=== PATIENT | female | born 1980 | race Caucasian/White ===

== ENCOUNTER 2017-03-28 19:37 | Emergency (ER) | payer OTHER ==
[~2017-03-28] VITALS: Ht 165.1 cm; Wt 74.2 kg
[~2017-03-28 19:37] MED LIST: ATHENOL325 MG PO; NOHOMEMEDS; [UNRECOGNIZED DRUG - OTHER]
[2017-03-28 20:18] LABS: HEMATOCRIT 41.1 % (36.0-46.0); MCH 28.4 PG (29.0-34.0); MCHC 34.3 G/DL (30.0-36.0); MCV 82.7 FL (83-99); MEAN PLAT.VOLUME 10.2 uM^3 (9.5-12.4); PLATELET COUNT 305 K/uL (156-360); RBC DIS.WIDTH-CV 12.4 % (11.8-14.6); RBC DIS.WIDTH-SD 37.2 % (39-53); RED BLOOD COUNT 4.97 M/uL (3.80-5.20); WHITE BLOOD COUNT 5.6 K/uL (4.1-10.2)
[2017-03-28 20:24] LABS: ADD MIUA? YES; BILIRUBIN NEGATIVE; BLOOD NEGATIVE; COLOR AMBER ((YELLOW)); GLUCOSE (STRIP) NEGATIVE; KETONES NEGATIVE; LEUKOCYTES NEGATIVE; NITRITE NEGATIVE; PROTEIN (STRIP) 30; SPECIFIC GRAVITY 1.029 (1.000-1.030)
[2017-03-28 20:30] LABS: BACTERIA RARE /HPF; EPITHELIAL CELLS 1+ /HPF; MUCUS 4+ /LPF; RED BLOOD CELLS 0-5 /HPF (0-5); WHITE BLOOD CELLS 0-5 /HPF (0-5)
[2017-03-28 20:32] LABS: CHLORIDE 106 mEq/L (99-109); POTASSIUM 3.7 mEq/L (3.7-5.4); SODIUM 141 mEq/L (136-147)
[2017-03-28 20:33] LABS: GLUCOSE 112 mg/dL (70-99)
[2017-03-28 20:35] LABS: ANION GAP 10 MEQ/L (2-14)
[2017-03-28 20:37] LABS: GFR ESTIMATE (CALCULATED) > 59 mL/min/
[2017-03-28 20:38] LABS: UREA NITROGEN (BUN) 13 mg/dL (9-23)
[2017-03-28 20:46] LABS: QUANTITATIVE HCG < 4.0 MIU/ML
[2017-03-28 22:26] VITALS: BP 131/74
== END 2017-03-28 22:27 | disposition home or self-care (01) ==
LOC: EME 19:37
PROVIDERS: Physician Assistant
DX: G43.909 Migraine, unspecified, not intractable, without status migrainosus (principal); Z87.891 Personal history of nicotine dependence
CPT/HCPCS: 80048; 81003; 84702; 85027; 99281; 99284; J1885

== ENCOUNTER 2017-06-27 12:48 | Emergency (ER) | payer OTHER ==
[~2017-06-27] VITALS: Ht 165.1 cm; Wt 75.0 kg
[2017-06-27] MEDS ORDERED: GABAPENTIN300 MG PO (15:07)
[2017-06-27] MEDS ORDERED: HYDROCODON-ACE1 EAC8 PO (15:07)
[2017-06-27] MEDS ORDERED: KEFLEX500 MG PO (15:18)
[2017-06-27 15:31] VITALS: BP 111/70
== END 2017-06-27 15:25 | disposition home or self-care (01) ==
LOC: EME 12:48
DX: S91.331A Puncture wound without foreign body, right foot, initial encounter (principal); W45.8XXA Other foreign body or object entering through skin, initial encounter; Y93.02 Activity, running; Y92.410 Unspecified street and highway as the place of occurrence of the external cause
CPT/HCPCS: 73630; 87070; 87075; 87205; 99281; 99284

== ENCOUNTER 2017-08-14 20:26 | Emergency (ER) | payer OTHER ==
[~2017-08-14] VITALS: Ht 165.1 cm; Wt 71.9 kg
[~2017-08-14 20:26] MED LIST changes: +GABAPENTIN300 MG PO; +HYDROCODON-ACE1 EAC8 PO; +KEFLEX500 MG PO
[2017-08-14 21:20] LABS: HEMATOCRIT 41.1 % (36.0-46.0); MCH 29.2 PG (29.0-34.0); MCHC 33.6 G/DL (30.0-36.0); MCV 86.9 FL (83-99); MEAN PLAT.VOLUME 10.2 uM^3 (9.5-12.4); PLATELET COUNT 295 K/uL (156-360); RBC DIS.WIDTH-CV 12.2 % (11.8-14.6); RED BLOOD COUNT 4.73 M/uL (3.80-5.20); WHITE BLOOD COUNT 4.7 K/uL (4.1-10.2)
[2017-08-14 21:35] LABS: CHLORIDE 106 mEq/L (99-109); POTASSIUM 3.8 mEq/L (3.7-5.4); SODIUM 139 mEq/L (136-147)
[2017-08-14 21:37] LABS: GLUCOSE 89 mg/dL (70-99)
[2017-08-14 21:38] LABS: ANION GAP 6 MEQ/L (2-14)
[2017-08-14 21:40] LABS: GFR ESTIMATE (CALCULATED) > 59 mL/min/
[2017-08-14 21:41] LABS: UREA NITROGEN (BUN) 7 mg/dL (9-23)
[2017-08-15] MEDS ORDERED: VENTOLIN HFA18 GM IH (02:15)
[2017-08-15] MEDS ORDERED: MOTRIN600 MG PO (02:16)
[2017-08-15 02:40] VITALS: BP 104/67
== END 2017-08-15 02:45 | disposition home or self-care (01) ==
LOC: EME 20:26
DX: J45.901 Unspecified asthma with (acute) exacerbation (principal); J02.9 Acute pharyngitis, unspecified; R09.81 Nasal congestion; Z87.891 Personal history of nicotine dependence
CPT/HCPCS: 71020; 80048; 85027; 94640; 94640 76; 99281; 99284

== ENCOUNTER 2018-02-06 17:52 | Emergency (ER) | payer OTHER ==
[~2018-02-06] VITALS: Ht 165.1 cm; Wt 76.6 kg
[~2018-02-06 17:52] MED LIST changes: +MOTRIN600 MG PO; +VENTOLIN HFA18 GM IH
[2018-02-06 21:10] LABS: HEMATOCRIT 41.4 % (36.0-46.0); HEMOGLOBIN 14.2 G/DL (11.9-15.5); MCH 31.3 PG (29.0-34.0); MCHC 34.3 G/DL (30.0-36.0); MCV 91.4 FL (83-99); PLATELET COUNT 289 K/uL (156-360); RBC DIS.WIDTH-CV 12.2 % (11.8-14.6); RBC DIS.WIDTH-SD 40.3 % (39-53); RED BLOOD COUNT 4.53 M/uL (3.80-5.20); WHITE BLOOD COUNT 8.8 K/uL (4.1-10.2)
[2018-02-06 21:19] LABS: ALBUMIN 4.3 g/dL (3.2-4.8)
[2018-02-06 21:20] LABS: CHLORIDE 101 mEq/L (99-109); SODIUM 138 mEq/L (136-147)
[2018-02-06 21:22] LABS: GLUCOSE 84 mg/dL (70-99); TOTAL PROTEIN 7.6 g/dL (6.4-8.3)
[2018-02-06 21:24] LABS: TOTAL BILIRUBIN 0.3 mg/dL (0.0-1.0)
[2018-02-06 21:25] LABS: ALKALINE PHOSPHATASE 69 IU/L (3-129)
[2018-02-06 21:26] LABS: CREATININE 0.8 mg/dL (0.6-1.3); GFR ESTIMATE (CALCULATED) > 59 mL/min/
[2018-02-06 21:27] LABS: AST (GOT) 16 IU/L (2-34); UREA NITROGEN (BUN) 12 mg/dL (9-23)
[2018-02-06 21:28] LABS: ALT (GPT) 22 IU/L (3-49)
[2018-02-06 21:29] LABS: URIC ACID 3.1 mg/dL (3.1-9.2)
[2018-02-06 21:56] LABS: ERTH.SED.RATE 17 MM/HR (0-20)
[2018-02-06 22:14] LABS: C-REACTIVE PROTEIN 3.1 MG/L (0-10)
[2018-02-06] MEDS ORDERED: MOTRIN800 MG PO (22:22)
[2018-02-06 22:33] VITALS: BP 124/75
[2018-02-07 11:31] LABS: LYME DISEASE SEROLOGY SCREEN NEGATIVE (NEGATIVE)
== END 2018-02-06 22:46 | disposition home or self-care (01) ==
LOC: EME 17:52
PROVIDERS: Nurse Practitioner Family
DX: M25.461 Effusion, right knee (principal); M25.561 Pain in right knee
CPT/HCPCS: 73564; 80053; 84550; 85027; 85651; 86140; 86618; 87070; 87205; 89051; 89060; 99281; 99284